=== PATIENT | female | born 1985 ===

== ENCOUNTER 2018-06-02 11:58 | Emergency (ER) | payer OTHER ==
[2018-06-02 12:05] VITALS: RESP 16
[2018-06-02] MEDS ORDERED: Sodium Chloride 0.9% 1,000 ML IV ONE (12:32)
[2018-06-02 13:03] LABS: BASO % 0.5 % (0.0-2.0); EOS # 0.1 K/uL (0.0-0.7); EOS % 0.8 % (0.0-4.0); HEMOGLOBIN 14.3 g/dL (11.0-16.0); LYMPH # 1.9 K/uL (1.0-4.3); LYMPH % 22.1 % (20.0-40.0); MEAN CELL VOLUME 88.3 fL (81.0-99.0); MEAN CORPUSCULAR HEMOGLOBIN 29.7 pg (27.0-31.0); MEAN CORPUSCULAR HGB CONC 33.6 g/dL (33.0-37.0); MEAN PLATELET VOLUME 7.9 fL (7.2-11.7); MONO # 0.7 K/uL (0.0-0.8); MONO % 8.4 % (0.0-10.0); NEUT % 68.2 % (50.0-75.0); NRBC % 0.1 % (0.0-2.0); RBC 4.83 Mil/uL (3.80-5.20); RED CELL DISTRIBUTION WIDTH 13.1 % (11.5-14.5); WHITE BLOOD COUNT 8.8 K/uL (4.8-10.8)
[2018-06-02 13:14] LABS: SQUAMOUS EPITHIAL 31 /hpf (0-5); URINE BACTERIA FEW (<OCC); URINE BILIRUBIN NEGATIVE (NEGATIVE); URINE BLOOD 3+ (NEGATIVE); URINE CLARITY Hazy (Clear); URINE COLOR Amber (YELLOW); URINE GLUCOSE (UA) NORMAL (Normal); URINE LEUKOCYTE ESTERASE TRACE Leu/uL (Negative); URINE PROTEIN 2+ mg/dL (NEGATIVE)
[2018-06-02 13:28] LABS: ALB/GLOB RATIO 1.3 (1.0-2.1); ALT/SGPT 120 U/L (9-52); AST/SGOT 60 U/L (14-36); BLOOD UREA NITROGEN 7 mg/dL (7-17); CALCIUM 9.6 mg/dl (8.6-10.4); GFR NON-AFRICAN AMERICAN > 60
--- NOTE | 2018-06-02 14:12 | C.PDOC ---
History Of Present Illness 32 year old female, who is currently around 9 weeks (), presents to the ED for evaluation of vaginal bleeding after being referred by her OB [facility] chemist earlier today. Patient states she experienced spotting yesterday and heavier bleeding this morning, but denies any bleeding currently. She denies fever, chills, abdominal pain, dysuria. Time Seen by Provider: 06/02/18 12:25 Chief Complaint (Nursing): Female Genitourinary History Per: Patient History/Exam Limitations: no limitations Onset/Duration Of Symptoms: Hrs Current Symptoms Are (Timing): Better Quality Of Discomfort: denies: "Pain" Associated Symptoms: denies: Fever, Chills, Urinary Symptoms Additional History Per: Patient Abnormal Vaginal Bleeding: Yes : 1 Para: 0 Past Medical History Reviewed: Historical Data, Nursing Documentation, Vital Signs Vital Signs: Last Vital Signs Temp 98.1 F 06/02/18 12:02 Pulse 70 06/02/18 12:02 Resp 16 06/02/18 12:02 BP 135/88 06/02/18 12:02 Pulse Ox 98 06/02/18 12:02 - Medical History PMH: No Chronic Diseases Surgical History: No Surg Hx Family History: States: Unknown Family Hx - Social History Hx Alcohol Use: No Hx Substance Use: No - Immunization History Hx Tetanus Toxoid Vaccination: No Hx Influenza Vaccination: No Hx Pneumococcal Vaccination: No Review Of Systems Constitutional: Negative for: Fever, Chills Genitourinary: Positive for: Vaginal Bleeding. Negative for: Dysuria Physical Exam - Physical Exam Appears: Non-toxic, No Acute Distress Skin: Normal Color, Warm, Dry Head: Atraumatic, Normacephalic Eye(s): bilateral: Normal Inspection Oral Mucosa: Moist Neck: Supple Chest: Symmetrical, No Deformity, No Tenderness Cardiovascular: Rhythm Regular, No Murmur Respiratory: Normal Breath Sounds, No Rales, No Rhonchi, No Wheezing Gastrointestinal/Abdominal: Soft, No Tenderness, No Guarding, No Rebound Pelvic: Other (deferred (performed in OB office earlier today)) Extremity: Normal ROM Neurological/Psych: Oriented x3, Normal Speech, Normal Cognition ED Course And Treatment - Laboratory Results Result Diagrams: 06/02/18 12:57 06/02/18 12:57 O2 Sat by Pulse Oximetry: 98 (on RA) Pulse Ox Interpretation: Normal Medical Decision Making Medical Decision Making: Progress: Bloodwork, urinalysis and pelvic US ordered and reviewed. IV Fluids given. Disposition Counseled Patient/Family Regarding: Studies Performed, Diagnosis - Disposition Disposition: HOME/ ROUTINE Disposition Time: 15:47 Condition: STABLE Instructions: Threatened Miscarriage (DC) Forms: [facility] ([place]), Gen Discharge Inst [place] - POA Present On Arrival: None - Clinical Impression Clinical Impression: Threatened - Scribe Statement The provider has reviewed the documentation as recorded by the Scribe (Bridgett Myers) Provider Attestation: All medical record entries made by the Scribe were at my direction and person ally dictated by me. I have reviewed the chart and agree that the record accurately reflects my personal performance of the history, physical exam, medical decision making, and the department course for this patient. I have also personally directed, reviewed, and agree with the discharge instructions and disposition.
--- NOTE | 2018-06-02 15:19 | US ---
Date of service: 06/02/2018 PROCEDURE: OB Pelvic Ultrasound HISTORY: and bleeding LMP 03/28/2018 COMPARISON: None available. FINDINGS: UTERUS: Gestational sac: 3.3 cm equivalent to 8 weeks 3 days gestational age. Chaplin-rump length 2.1 cm equivalent to 8 weeks 5 days gestational age. Heart rate: 146 bpm. age (Ultrasound estimated): 8 weeks 4 days Awa-gestational hemorrhage: None. 3 mm yolk sac identified. Date of delivery (Ultrasound estimated) : 01/08/2019 Uterus measures 12.3 x 7.6 x 9.0 cm. Two uterine fibroids are identified. Anterior intramural fibroid, 1.3 x 1.3 x 1.4 cm. Intramural/submucosal fibroid, 3.8 x 2.8 x 3.4 cm.. CERVIX: Measures 3.6 cm. Long and closed. No cervical abnormality seen. RIGHT OVARY: Measures cm. No mass lesion. Normal flow. LEFT OVARY: Measures cm. No solid mass. Normal flow. FREE FLUID: None. OTHER FINDINGS: None. IMPRESSION: Single live intrauterine gestation of approximately 8 weeks 4 days. heart rate 146. No subchorionic hemorrhage. Two uterine fibroids. No additional abnormality.
[2018-06-02 16:19] VITALS: BP 119/79; PULSE 69; TEMP 98; O2SAT 100
== END 2018-06-02 16:22 | disposition home or self-care (01) ==
LOC: C.ER 11:58
DX: O20.0 Threatened abortion (principal); Z3A.08 8 weeks gestation of pregnancy
CPT/HCPCS: 76805; 76817; 80053; 81001; 84702; 85025; 86850; 86900; 96360; 99285; J7030

== ENCOUNTER 2018-06-16 17:53 | Emergency (ER) | payer SELFPAY ==
[2018-06-16 18:02] VITALS: O2SAT 98
[2018-06-16 18:18] LABS: BASO % 0.3 % (0.0-2.0); EOS # 0.1 K/uL (0.0-0.7); EOS % 1.3 % (0.0-4.0); HEMOGLOBIN 12.8 g/dL (11.0-16.0); LYMPH # 1.8 K/uL (1.0-4.3); LYMPH % 20.8 % (20.0-40.0); MEAN CELL VOLUME 87.3 fL (81.0-99.0); MEAN CORPUSCULAR HEMOGLOBIN 28.7 pg (27.0-31.0); MEAN CORPUSCULAR HGB CONC 32.9 g/dL (33.0-37.0); MEAN PLATELET VOLUME 7.7 fL (7.2-11.7); MONO # 0.7 K/uL (0.0-0.8); MONO % 8.5 % (0.0-10.0); NEUT # 5.9 K/uL (1.8-7.0); NEUT % 69.1 % (50.0-75.0); RBC 4.46 Mil/uL (3.80-5.20); RED CELL DISTRIBUTION WIDTH 13.2 % (11.5-14.5); WHITE BLOOD COUNT 8.6 K/uL (4.8-10.8)
[2018-06-16 18:31] LABS: INR 1.2
[2018-06-16 18:37] LABS: ALB/GLOB RATIO 1.5 (1.0-2.1); ALBUMIN 4.5 g/dL (3.5-5.0); ALT/SGPT 52 U/L (9-52); AST/SGOT 27 U/L (14-36); BLOOD UREA NITROGEN 8 mg/dL (7-17); CALCIUM 8.9 mg/dl (8.6-10.4); GFR NON-AFRICAN AMERICAN > 60
--- NOTE | 2018-06-16 19:41 | C.PDOC ---
History Of Present Illness 32 year old female () who is currently 10 weeks presents to the ED complaining of heavy vaginal bleeding associated with menstrual cramping since this afternoon. Denies any other symptoms. Patient was seen on 06/02 for s potting. Time Seen by Provider: 06/16/18 19:27 Chief Complaint (Nursing): Female Genitourinary History Per: Patient History/Exam Limitations: no limitations Onset/Duration Of Symptoms: Hrs Current Symptoms Are (Timing): Still Present Quality Of Discomfort: Cramping Additional History Per: Prior Records Abnormal Vaginal Bleeding: Yes : 1 Para: 0 Past Medical History Reviewed: Historical Data, Nursing Documentation, Vital Signs Vital Signs: Last Vital Signs Temp 98.7 F 06/16/18 17:56 Pulse 110 H 06/16/18 17:56 Resp 20 06/16/18 17:56 BP 136/91 H 06/16/18 17:56 Pulse Ox 98 06/16/18 17:56 - Medical History PMH: No Chronic Diseases Surgical History: No Surg Hx Family History: States: No Known Family Hx - Social History Hx Alcohol Use: No Hx Substance Use: No - Immunization History Hx Tetanus Toxoid Vaccination: No Hx Influenza Vaccination: No Hx Pneumococcal Vaccination: No Review Of Systems Except As Marked, All Systems Reviewed And Found Negative. Constitutional: Negative for: Fever, Chills Cardiovascular: Negative for: Chest Pain Respiratory: Negative for: Shortness of Breath Gastrointestinal: Positive for: Abdominal Pain. Negative for: Nausea, Vomiting, Diarrhea Genitourinary: Positive for: Vaginal Bleeding. Negative for: Dysuria, Hematuria Physical Exam - Physical Exam Appears: Non-toxic, No Acute Distress, Other (Obese) Skin: Warm, Dry Head: Normacephalic Eye(s): bilateral: Normal Inspection Nose: Normal Oral Mucosa: Moist Neck: Supple Chest: Symmetrical Cardiovascular: Rhythm Regular Respiratory: Normal Breath Sounds, No Rales, No Rhonchi, No Wheezing Gastrointestinal/Abdominal: Soft, No Tenderness, No Guarding, No Rebound Neurological/Psych: Oriented x3, Normal Speech Gait: Steady ED Course And Treatment - Laboratory Results Result Diagrams: 06/16/18 18:14 06/16/18 18:14 Lab Interpretation: Normal (QHCG 16,589 from 154,850 on 06/02, A+) O2 Sat by Pulse Oximetry: 98 (RA) Pulse Ox Interpretation: Normal Reevaluation Time: 19:39 Reassessment Condition: Unchanged Medical Decision Making Medical Decision Making: Plan - Motrin 600mg PO - Ultram 50mg PO - Bloodwork diminishing QHCG, demise with heavy menstrual bleeding vag spotting 06/02 wity US showing IUP c/w [id number] pt and @ bedside defer US with informed consent as NO risk of ectopic and presentation c/w AB in progress Disposition Doctor Will See Patient In The: Office Counseled Patient/Family Regarding: Studies Performed, Diagnosis - Disposition Referrals: [facility] [Outside] [facility] [Outside] [facility] [Outside] [facility] [Outside] Disposition: HOME/ ROUTINE Disposition Time: 19:41 Condition: GOOD Additional Instructions: QHCG 16,589 A+ IUP noted 06/02 expect heavier and longer duration vaginal/uterine bleeding. motrin 600 mg every 6 hours as needed for pain Tramadol 50 mg (narcotic) 1 tab every 4-6 hours as needed for more severe pain . Prescriptions: traMADol [Ultram] 50 mg PO Q6H PRN #10 tab PRN Reason: pain Instructions: Miscarriage, Dealing With Miscarriage Forms: [facility] ([employer]) - Clinical Impression Clinical Impression: - Scribe Statement The provider has reviewed the documentation as recorded by the Scribe Thais Huizar All medical record entries made by the Scribe were at my direction and personally dictated by me. I have reviewed the chart and agree that the record accurately reflects my personal performance of the history, physical exam, medical decision making, and the department course for this patient. I have also personally directed, reviewed, and agree with the discharge instructions and disposition.
[2018-06-16 20:00] VITALS: BP 107/74; PULSE 86; RESP 16; TEMP 94.4
== END 2018-06-16 20:18 | disposition home or self-care (01) ==
LOC: C.ER 17:53
DX: O03.9 Complete or unspecified spontaneous abortion without complication (principal); Z3A.10 10 weeks gestation of pregnancy